=== PATIENT | male | born 1945 | race Caucasian/White ===

== ENCOUNTER 2017-11-30 21:16 | Emergency (ER) | payer MEDICARE ==
[2017-11-30 21:32] VITALS: BP 155/84
--- NOTE | 2017-11-30 22:31 | ER Document Report ---
ED General - General Chief Complaint: Eye Problem Stated Complaint: EYE ISSUES Time Seen by Provider: 11/30/17 22:05 Notes: Patient is a 72-year-old male who presents with complaint of blurred vision in the right eye. 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 Patient's right eye has a history of cataracts has had cataract surgeries in the past. Is followed at [facility] for all his issues. He also has a history of a "abnormal appearing retinal nerve". He was referred to a rare/endangered species specialist but his pressures have always been normal. The only eyedrops he uses are lubricating eyedrops. He says his distance vision is usually pretty good. He says he always has a little bit of difficulty with up close vision and does use glasses for that. He says 2 days ago he noticed that the newspaper was little bit more blurry than usual. Said last 24 hours as become very blurry with his close of vision. He says his distance vision may be a little bit more blurry than usual, but he does not notice a huge difference as with his close vision. He denies any pain in his eye. No recent trauma to his face. No focal weakness or numbness. No slurred speech or facial droop. No history of carotid stenosis that is aware of. He does have a history of what sounds to be aortic stenosis but has never required surgery for this and is not been having any symptoms with exertion. No other complaints at this time. TRAVEL OUTSIDE OF THE [place] IN LAST 30 DAYS: No - Related Data Allergies/Adverse Reactions: Cephalosporins Allergy (Verified 11/30/17 21:23) Facial edema and rash lisinopril Allergy (Verified 11/30/17 21:19) metoprolol [From Lopressor] Allergy (Verified 11/30/17 21:19) Penicillins Allergy (Verified 11/30/17 21:19) Past Medical History - Social History Smoking Status: Never Smoker Frequency of alcohol use: None Drug Abuse: None Family History: Reviewed & Not Pertinent - Past Medical History Cardiac Medical History: Reports: Hx Hypercholesterolemia, Hx Hypertension Review of Systems - Review of Systems Notes: My Normal Review Basic REVIEW OF SYSTEMS: CONSTITUTIONAL : Denies fever, chills, or sweats. Denies recent illness. EENT: New onset blurred vision right eye. CARDIOVASCULAR: Denies chest pain. RESPIRATORY: Denies cough, cold, or chest congestion. Denies shortness of breath, difficulty breathing, or wheezing. FEMALE GENITOURINARY: Denies vaginal bleeding, abnormal or irregular periods. LMP: MUSCULOSKELETAL: Denies neck or back pain or joint pain or swelling. SKIN: Denies rash or skin lesions. NEUROLOGICAL: Denies altered mental status or loss of consciousness. Denies headache. Denies weakness or paralysis or loss of use of either side. Denies problems with gait or speech. Denies sensory or motor loss. ALL OTHER SYSTEMS REVIEWED AND NEGATIVE. Physical Exam - Vital signs Vitals: Temp Pulse Resp BP Pulse Ox 98.1 F 88 18 155/84 H 97 11/30/17 21:30 11/30/17 21:30 11/30/17 21:30 11/30/17 21:30 11/30/17 21:30 - Notes Notes: General Appearance: Well nourished, alert, cooperative, no acute distress, no obvious discomfort. Well-appearing. Vitals: reviewed, See vital signs table. Head: no swelling or tenderness to the head Eyes: Patient's right eye has good extraocular motion without difficulty. Pupil excellent appropriate. No clouding of the pupil. Slit lamp examination does not reveal any abnormality. Funduscopic examination reveals a normal- appearing optic disc without evidence of edema. Bedside ultrasound of the eye does not show evidence of retinal detachment. Intraocular pressure of the right eye is 12 using the Villa-Pen. Mouth: No decreasd moisture Neck: Supple, no neck tenderness, no added bruits. Patient's does have murmur that radiates from the heart into the carotids consistent with his history of aortic stenosis. Lungs: No wheezing, No rales, No rhonci, No accessory muscle use, good air exchange bilaterally. Heart: Normal rate, Regular rythm, systolic murmur radiating towards carotids Extremities: strength 5/5 in all extremities, good pulses in all extremities, no swelling or tenderness in the extremities, no edema. Skin: warm, dry, appropriate color, no rash Neuro: speech clear, oriented x 3, normal affect, responds appropriately to questions. Cranial nerves II through XII are intact the exception of some difficulty with extraocular motion of the left eye which is chronic. Symmetric facial movement. Patient is good strength in all 4 extremities. Distal sensation intact. Normal gait. Course - Re-evaluation Re-evalutation: 12/01/17 05:59 I spoke with registered pharmacist from [facility], Dr. John. He does not have any further suggestions at this time. He says he will have the patient come to the office tomorrow. He says he will have the office contact him tomorrow morning to give an appointment to come and get reevaluated. I did explain to the patient he is agreeable to it. On exam I do not see any finding that would explain exactly was going on. I am concerned he has a history of an normal- appearing retinal nerve which may be why he is having symptoms currently. I do not know the exact etiology behind what the abnormal retinal nerve is. Do not suspect stroke. I suspect that stroke he would have much greater loss of vision that would have affected most all visual mad[place] instead of just his near vision. I do agree with close follow-up with registered pharmacist being that this is the patient's one good eye and therefore did take the precautions needed to help prevent him from worsening his vision. Encouraged to return to ER if he has pain or any worsening symptoms. Patient agrees with plan and will be discharged home. Dictation of this chart was performed using voice recognition software; therefore, there may be some unintended grammatical errors. - Vital Signs Vital signs: Temp Pulse Resp BP Pulse Ox 98.1 F 88 18 155/84 H 97 11/30/17 21:30 11/30/17 21:30 11/30/17 21:30 11/30/17 21:30 11/30/17 21:30 Discharge - Discharge Clinical Impression: Blurred vision, right eye Condition: Good Disposition: HOME, SELF-CARE Additional Instructions: The eye clinic at [facility] should be calling you in the am to give you a time to go to the office. Fell free to call them as well if you do not hear from them by 10am. Please return to the ER if you start to have pain in your eye or any stroke like symptoms such as weakness in your extremities, facial droop, of slurred speech.
[2017-11-30] MEDS ORDERED: TETRACAINE HCL 0.5% OPH SOLN 2 ML OD ONE (22:34)
[2017-11-30] MEDS ORDERED: TETRACAINE HCL 0.5% OPH SOLN 2 ML ONE (22:36)
== END 2017-12-01 00:11 | disposition home or self-care (01) ==
LOC: ER 21:16
DX: H53.8 Other visual disturbances (principal); Z88.1 Allergy status to other antibiotic agents; Z88.8 Allergy status to other drugs, medicaments and biological substances; Z88.0 Allergy status to penicillin
CPT/HCPCS: 99283

== ENCOUNTER 2018-01-07 13:32 | Emergency (ER) | payer MEDICARE ==
[2018-01-07] MEDS ORDERED: MINERAL OIL 30 ML UDCUP PR ONE (13:53)
--- NOTE | 2018-01-07 13:54 | ER Document Report ---
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 Patient denies any fevers chills denies any vomiting. Patient notes that this is happened 4-5 times before and he requires an enema. Patient defers on any imaging states he is not having an obstruction TRAVEL OUTSIDE OF THE [place] IN LAST 30 DAYS: No - HPI Onset: Yesterday Onset/Duration: Sudden Quality of pain: Cramping Severity: Mild Pain Level: 1 Associated symptoms: Other Exacerbated by: Denies Relieved by: Denies Similar symptoms previously: Yes Recently seen / treated by doctor: Yes - Related Data Allergies/Adverse Reactions: Cephalosporins Allergy (Verified 01/07/18 13:35) Facial edema and rash lisinopril Allergy (Verified 01/07/18 13:35) metoprolol [From Lopressor] Allergy (Verified 01/07/18 13:35) Penicillins Allergy (Verified 01/07/18 13:35) Past Medical History - Social History Smoking Status: Never Smoker Cigarette use (# per day): No Chew tobacco use (# tins/day): No Smoking Education Provided: No Family History: Reviewed & Not Pertinent - Past Medical History Cardiac Medical History: Reports: Hx Hypercholesterolemia, Hx Hypertension Renal/ Medical History: Denies: Hx Peritoneal Dialysis Review of Systems - Review of Systems Notes: REVIEW OF SYSTEMS: CONSTITUTIONAL : Denies fever, chills, or sweats. Denies recent illness. EENT: Denies eye, ear, throat, or mouth pain or symptoms. Denies nasal or sinus congestion or discharge. Denies throat, tongue, or mouth swelling or difficulty swallowing. CARDIOVASCULAR: Denies chest pain. Denies palpitations or racing or irregular heart beat. Denies ankle edema. RESPIRATORY: Denies cough, cold, or chest congestion. Denies shortness of breath, difficulty breathing, or wheezing. GASTROINTESTINAL: Denies any abdominal pain admits to rectal pressure GENITOURINARY: Denies difficulty urinating, painful urination, burning, frequency, blood in urine, or discharge. MUSCULOSKELETAL: Denies back or neck pain or stiffness. Denies joint pain or swelling. SKIN: Denies rash, lesions or sores. HEMATOLOGIC : Denies easy bruising or bleeding. LYMPHATIC: Denies swollen, enlarged glands. NEUROLOGICAL: Denies confusion or altered mental status. Denies passing out or loss of consciousness. Denies dizziness or lightheadedness. Denies headache. Denies weakness or paralysis or loss of use of either side. Denies problems with gait or speech. Denies sensory loss, numbness, or tingling. Denies seizures. PSYCHIATRIC: Denies anxiety or stress. Denies depression, suicidal ideation, or homicidal ideation. ALL OTHER SYSTEMS REVIEWED AND NEGATIVE. Dictation was performed using [employer] recognition software PHYSICAL EXAMINATION: GENERAL: Well-appearing, well-nourished and in no acute distress. HEAD: Atraumatic, normocephalic. EYES: Strabismus ENT: Nares patent, oropharynx clear without exudates. Moist mucous membranes. NECK: Normal range of motion, supple without lymphadenopathy LUNGS: Breath sounds clear to auscultation bilaterally and equal. No wheezes rales or rhonchi. HEART: Regular rate and rhythm without murmurs ABDOMEN: Soft, nontender, nondistended abdomen. No guarding, no rebound. No masses appreciated. Musculoskeletal: Normal range of motion, no pitting or edema. No cyanosis. NEUROLOGICAL: Cranial nerves grossly intact. Normal speech, normal gait. Normal sensory, motor exams PSYCH: Normal mood, normal affect. SKIN: Warm, Dry, normal turgor, no rashes or lesions noted. Physical Exam - Vital signs Vitals: Temp Pulse Resp BP Pulse Ox 98.1 F 102 H 12 149/82 H 96 01/07/18 13:37 01/07/18 13:37 01/07/18 13:37 01/07/18 13:37 01/07/18 13:37 Course - Re-evaluation Re-evalutation: 01/07/18 14:00 Patient was offered rectal examination stimulation he defers he wishes to have the enema performed I will ordered the enema at his request, I do believe he requires imaging to rule out obstruction he does not want 01/07/18 16:07 Enema was performed successfully patient stable and ready for discharge After performing a Medical Screening Examination, I estimate there is LOW risk for ACUTE APPENDICITIS, BOWEL OBSTRUCTION, ACUTE CHOLECYSTITIS, PERFORATED DIVERTICULITIS, INCARCERATED HERNIA, PANCREATITIS, TESTICULAR TORSION or PERFORATED ULCER, thus I consider the discharge disposition reasonable. Also, there is no evidence or peritonitis, sepsis, or toxicity. I have reevaluated this patient multiple times and no significant life threatening changes are noted. The patient and I have discussed the diagnosis and risks, and we agree with discharging home with close follow-up with the understanding that symptoms and presentations can change. We also discussed returning to the Emergency Department immediately if new or worsening symptoms occur. We have discussed the symptoms which are most concerning (e.g., bloody stool, fever, changing or worsening pain, intractable vomiting - standard verbal up date) that necessitate immediate return. - Vital Signs Vital signs: Temp Pulse Resp BP Pulse Ox 98.1 F 102 H 12 149/82 H 96 01/07/18 13:37 01/07/18 13:37 01/07/18 13:37 01/07/18 13:37 01/07/18 13:37 Discharge - Discharge Clinical Impression: Constipation Qualifiers: Constipation type: unspecified constipation type Qualified Code(s): K59.00 - Constipation, unspecified Condition: Stable Disposition: HOME, SELF-CARE Instructions: Constipation ([facility]) Additional Instructions: Follow up with your physician tomorrow for further care or return to the ED IMMEDIATELY if symptoms worsen or new concerns occur. If you cannot afford to follow up with your primary care physician a list of low cost clinics have been provided at the end of your discharge papers as well.
[2018-01-07 16:16] VITALS: BP 116/61
== END 2018-01-07 16:28 | disposition home or self-care (01) ==
LOC: ER 13:32
DX: K59.00 Constipation, unspecified (principal); E78.00 Pure hypercholesterolemia, unspecified; I10 Essential (primary) hypertension; Z88.0 Allergy status to penicillin
CPT/HCPCS: 99283; J3490

== ENCOUNTER 2018-04-17 08:39 | Emergency (ER) | payer MEDICARE ==
--- NOTE | 2018-04-17 09:12 | ER Document Report ---
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 It happens about 4 times a year. He does take MiraLAX 1 capful every day but when his stool gets too loose he kind of cuts down on the amount. He feels rectal pressure and inability to pass a large rectal stool, small stool yesterday with a lot of straining. When he urinated this morning he felt like he had difficulty completely emptying his bladder caused anal pressure. He has since emptying his bladder since he got to the emergency room. He states the enema always helps. He initially did not want a KUB x-ray. But now that he was able to empty his bladder he wanted the x-ray. No fever or chills. No abdominal pain. No chest pain or shortness of breath. TRAVEL OUTSIDE OF THE [place] IN LAST 30 DAYS: No - Related Data Allergies/Adverse Reactions: Cephalosporins Allergy (Verified 04/17/18 08:42) Facial edema and rash lisinopril Allergy (Verified 04/17/18 08:42) metoprolol [From Lopressor] Allergy (Verified 04/17/18 08:42) Penicillins Allergy (Verified 04/17/18 08:42) Past Medical History - General Information source: Patient - Social History Smoking Status: Never Smoker Frequency of alcohol use: None Drug Abuse: None Lives with: Family Family History: Reviewed & Not Pertinent - Past Medical History Cardiac Medical History: Reports: Hx Hypercholesterolemia, Hx Hypertension Renal/ Medical History: Denies: Hx Peritoneal Dialysis Past Surgical History: Reports: Hx Genitourinary Surgery - hypospadius repair, Hx Rectal Surgery - anal repair Review of Systems - Review of Systems Constitutional: No symptoms reported EENT: No symptoms reported Cardiovascular: No symptoms reported Respiratory: No symptoms reported Gastrointestinal: See HPI Genitourinary: No symptoms reported Male Genitourinary: No symptoms reported Musculoskeletal: No symptoms reported Skin: No symptoms reported Hematologic/Lymphatic: No symptoms reported Neurological/Psychological: No symptoms reported Physical Exam - Vital signs Vitals: Temp Pulse Resp BP Pulse Ox 98.4 F 89 15 148/78 H 95 04/17/18 08:45 04/17/18 08:45 04/17/18 08:45 04/17/18 08:45 04/17/18 08:45 Interpretation: Normal - General General appearance: Appears well, Alert - HEENT Head: Normocephalic, Atraumatic Eyes: Normal Pupils: PERRL - Respiratory Respiratory status: No respiratory distress Chest status: Nontender Breath sounds: Normal Chest palpation: Normal - Cardiovascular Rhythm: Regular Heart sounds: Normal auscultation Murmur: No - Abdominal Inspection: Normal Distension: Tympanitic Bowel sounds: Normal Tenderness: Nontender Organomegaly: No organomegaly Notes: no enlarged bladder - Rectal Tenderness: Yes Hemorrhoids: External - Some bleeding inflamed hemorrhoids - Back Back: Normal, Nontender - Extremities General upper extremity: Normal inspection, Nontender, Normal color, Normal ROM , Normal temperature General lower extremity: Normal inspection, Nontender, Normal color, Normal ROM , Normal temperature, Normal weight bearing. No: Shmuel's sign - Neurological Neuro grossly intact: Yes Cognition: Normal Orientation: AAOx4 Eagle Coma Scale Eye Opening: Spontaneous Eagle Coma Scale Verbal: Oriented Eagle Coma Scale Motor: Obeys Commands Clayton Coma Scale Total: 15 Speech: Normal Motor strength normal: LUE, RUE, LLE, RLE Sensory: Normal - Psychological Associated symptoms: Normal affect, Normal mood - Skin Skin Temperature: Warm Skin Moisture: Dry Skin Color: Normal Course - Re-evaluation Re-evalutation: 04/17/18 10:10 KUB shows large rectal stool load. Patient does not want a digital rectal exam. We will use the longer enema tubing to get past the obstruction which was used the last time he was here in the emergency department. 04/17/18 11:04 Relieved his stool impaction from the rectum after the enema and a soft stool above with red blood from the anal hemorrhoids. Feels normal now. 04/17/18 11:05 - Vital Signs Vital signs: Temp Pulse Resp BP Pulse Ox 98.4 F 89 15 148/78 H 95 04/17/18 08:45 04/17/18 08:45 04/17/18 08:45 04/17/18 08:45 04/17/18 08:45 Discharge - Discharge Clinical Impression: Rectal stool impaction resolution Condition: Good Disposition: HOME, SELF-CARE Instructions: Constipation ([facility]) Additional Instructions: Continue the MiraLAX daily Return to the emergency room any concerns see dr villa for follow up to er if you concerns, fever, abdominal pain
[2018-04-17] MEDS ORDERED: NA PHOS,M-B/NA PHOS,DI-BA (ADULT) 133 ML ENEMA PR ONE (09:35)
[2018-04-17] MEDS ORDERED: MINERAL OIL 30 ML UDCUP PR ONE (10:09)
--- NOTE | 2018-04-17 10:11 | RADIOLOGY REPORT (SQ) ---
EXAM DESCRIPTION: KUB/ABDOMEN (SINGLE VIEW) COMPLETED DATE/TIME: 04/17/2018 10:01 am REASON FOR STUDY: abdominal pain COMPARISON: 09/08/2017 NUMBER OF VIEWS: One view. TECHNIQUE: Supine radiographic image of the abdomen acquired. LIMITATIONS: None. FINDINGS: BOWEL GAS PATTERN: Normal bowel gas pattern. No dilated loops. CONSTIPATION: moderate CALCIFICATIONS: Stable calcifications right upper quadrant presumably representing gallstones. SOFT TISSUES: No gross mass or suggestion of organomegaly. HARDWARE: None in the abdomen. BONES: No acute fracture. No worrisome bone lesions. OTHER: No other significant finding. IMPRESSION: NO RADIOGRAPHIC EVIDENCE FOR ACUTE ABDOMINAL DISEASE. Moderate constipation. TECHNICAL DOCUMENTATION: JOB ID: [id number] [employer]- All Rights Reserved Reading location - IP/workstation name: [email or web address]
[2018-04-17 11:14] VITALS: BP 123/74
== END 2018-04-17 11:14 | disposition home or self-care (01) ==
LOC: ER 08:39
DX: K56.41 Fecal impaction (principal); K64.4 Residual hemorrhoidal skin tags; I10 Essential (primary) hypertension; Z79.899 Other long term (current) drug therapy; Z88.1 Allergy status to other antibiotic agents; Z88.8 Allergy status to other drugs, medicaments and biological substances; Z88.0 Allergy status to penicillin
CPT/HCPCS: 99283; 74018; J3490

== ENCOUNTER → 2018-07-16 | Emergency (ER) | payer MEDICARE ==
[~2018-07-16] MED LIST: ASPIRIN 81 MG TABLET, CHEWABLE PO ONE; POTASSIUM CHLORIDE 10 MEQ CAPSULE.ER PO ONE
[2018-07-16 20:13] LABS: ABSOLUTE BASOPHILS # (AUTO) 0.1 10^3/uL (0.0-0.2); ABSOLUTE EOSINOPHILS # (AUTO) 0.1 10^3/uL (0.0-0.6); ABSOLUTE LYMPHOCYTES (AUTO) 1.6 10^3/uL (0.5-4.7); ABSOLUTE MONOCYTES (AUTO) 0.5 10^3/uL (0.1-1.4); ABSOLUTE NEUT (AUTO) 2.6 10^3/uL (1.7-8.2); BASOPHILS % (AUTO) 1.2 % (0-2); EOSINOPHILS % (AUTO) 1.8 % (0-6); HEMATOCRIT 35.9 % (37.9-51.0); HEMOGLOBIN 12.5 g/dL (13.5-17.0); LYMPHOCYTES % (AUTO) 33.4 % (13-45); MEAN CORPUSCULAR HEMOGLOBIN 29.9 pg (27.0-33.4); MEAN CORPUSCULAR VOLUME 86 fl (80-97); MONOCYTES % (AUTO) 9.4 % (3-13); PLATELET COUNT 249 10^3/uL (150-450); RED BLOOD COUNT 4.19 10^6/uL (4.35-5.55); SEGMENTED NEUTROPHILS % (AUTO) 54.2 % (42-78); TOTAL CELLS COUNTED % (AUTO) 100 %; WHITE BLOOD COUNT 4.9 10^3/uL (4.0-10.5)
--- NOTE | 2018-07-16 20:29 | ER Document Report ---
ED Cardiac - General Chief Complaint: Weakness Stated Complaint: WEAKNESS Time Seen by Provider: 07/16/18 19:44 Mode of Arrival: Medic Information source: Patient Notes: Patient is a 72-year-old male who presents today via EMS for chief complaint of weakness. Patient is a 5 weeks post aortic valve replacement done at [facility]. Patient's dag sprayer at [facility] is Dr. Jero Hummel. Patient reports that he has had mild fatigue since the surgery but had gotten up to the point where he was walking at least 30 minutes a day. This morning he woke up and felt very weak, his took his blood pressure and found it to be 105/60. His heart rate was in the 50s. Patient's has a log at the bedside for the past several weeks and patient's blood pressure has typically been 120s-130s systolic and heart rate has been running in the 70s-80s over the last several weeks. Patient does not have any other symptoms, denies shortness of breath, chest pain/pressure or nausea. Patient reports that he is currently undergoing treatment for urinary tract infection, patient taking Macrobid for the last 8 days. He reports his primary care provider placed him on the Macrobid for 30 days. TRAVEL OUTSIDE OF THE [place] IN LAST 30 DAYS: No - Related Data Allergies/Adverse Reactions: Cephalosporins Allergy (Verified 04/17/18 08:42) Facial edema and rash lisinopril Allergy (Verified 04/17/18 08:42) metoprolol [From Lopressor] Allergy (Verified 04/17/18 08:42) Penicillins Allergy (Verified 04/17/18 08:42) Past Medical History - General Information source: Patient - Social History Smoking Status: Never Smoker Frequency of alcohol use: None Drug Abuse: None Family History: Reviewed & Not Pertinent - Past Medical History Cardiac Medical History: Reports: Hx Hypercholesterolemia, Hx Hypertension Renal/ Medical History: Denies: Hx Peritoneal Dialysis Past Surgical History: Reports: Hx Cardiac Surgery - Aortic valve replacement at [facility]., Hx Genitourinary Surgery - hypospadius repair, Hx Rectal Surgery - anal repair - Immunizations Immunizations up to date: Yes Review of Systems - Review of Systems Constitutional: Weakness Cardiovascular: denies: Chest pain, Palpitations Respiratory: denies: Short of breath Gastrointestinal: denies: Abdominal pain, Diarrhea, Nausea, Vomiting Genitourinary: Frequency -: Yes All other systems reviewed and negative Physical Exam - Vital signs Vitals: Pulse Ox 99 07/16/18 20:05 - Notes Notes: PHYSICAL EXAMINATION: GENERAL: Well-appearing, well-nourished and in no acute distress. HEAD: Atraumatic, normocephalic. EYES: Pupils equal round and reactive to light, extraocular movements intact, sclera anicteric, conjunctiva are normal. ENT: Nares patent, oropharynx clear without exudates. Moist mucous membranes. NECK: Normal range of motion, supple without lymphadenopathy LUNGS: Breath sounds clear to auscultation bilaterally and equal. No wheezes rales or rhonchi. HEART: Regular rate and rhythm without murmurs ABDOMEN: Soft, nontender, nondistended abdomen. No guarding, no rebound. No masses appreciated. Musculoskeletal: Normal range of motion, no pitting or edema. No cyanosis. NEUROLOGICAL: Cranial nerves grossly intact. Normal speech, unsteady gait. Normal sensory, motor exams. PSYCH: Normal mood, normal affect. SKIN: Warm, Dry, normal turgor, no rashes or lesions noted. Healing incision to right chest wall. Course - Re-evaluation Re-evalutation: CBC is unremarkable. Comprehensive metabolic panel reveals a potassium of 3.3, otherwise unremarkable. CK, CK-MB and troponin are all negative. Patient continues to be in a sinus rhythm with a rate ranging between 50 and 58. Patient has had a couple of episodes of a heart rate in the low 80s. Patient has no complaints at this time other than generalized weakness. Patient was able to ambulate to the restroom with a slow but steady gait. 07/16/18 21:10 Call placed to cardiology team at [facility]. Awaiting callback. 07/16/18 22:20 Continuing to await callback from [facility]. 07/17/18 00:12 Patient is resting comfortably with spouse at bedside. Patient updated on current status. 07/17/18 01:20 Dr. Byron Rust from [facility] excepting patient for transfer. Patient and family member at bedside updated on plan of care and are agreeable to same. Patient remains hemodynamically stable at this time. Will order a repeat EKG as per requested by Dr. Rust. 07/17/18 04:04 Spoke with the transfer center at [facility] who reports that will not be a bed available until mid morning for this patient. Patient and family member are made aware of the update. Patient's heart rate currently 62, sinus rhythm, blood pressure 128/82, patient denies any complaints at this time. 07/17/18 06:33 Patient and family have been continually updated regarding the status of the transfer. Patient has been having much anxiety regarding what time he will be leaving, how his will get up to the hospital etc. Patient continues to not have any physical symptoms at this time. 07/17/18 07:14 Bedside handoff given to Dr. Dyer. Patient updated on the plan of care and is without any questions at this time. - Vital Signs Vital signs: Temp Pulse Resp BP Pulse Ox 98.9 F 17 128/82 H 96 07/17/18 04:23 07/17/18 04:01 07/17/18 04:01 07/17/18 04:01 - Laboratory Result Diagrams: 07/16/18 20:00 07/16/18 20:00 Laboratory results interpreted by me: 07/16/18 07/16/18 20:00 20:00 RBC 4.19 L Hgb 12.5 L Hct 35.9 L Sodium 136.3 L Potassium 3.3 L Discharge - Discharge Disposition: [facility]
[2018-07-16 20:40] LABS: ALANINE AMINOTRANSFERASE 23 U/L (21-72); ALBUMIN 4.2 g/dL (3.5-5.0); ALKALINE PHOSPHATASE 75 U/L (38-126); ANION GAP 11 (5-19); ASPARTATE AMINO TRANSFERASE 29 U/L (17-59); BILIRUBIN,DIRECT 0.3 mg/dL (0.0-0.4); BILIRUBIN,TOTAL 0.7 mg/dL (0.2-1.3); BLOOD UREA NITROGEN 10 mg/dL (7-20); CALCIUM 8.8 mg/dL (8.4-10.2); CARBON DIOXIDE 26 mmol/L (22-30); CHLORIDE 99 mmol/L (98-107); CREATINE KINASE 83 U/L (55-170); GLUCOSE 98 mg/dL (75-110); POTASSIUM 3.3 mmol/L (3.6-5.0); SODIUM 136.3 mmol/L (137-145); TOTAL PROTEIN 7.3 g/dL (6.3-8.2)
[2018-07-16 20:51] LABS: CREATINE KINASE MB 1.51 ng/mL (<4.55)
[2018-07-16 20:57] LABS: TROPONIN I < 0.012 ng/mL
--- NOTE | 2018-07-16 21:06 | RADIOLOGY REPORT (SQ) ---
EXAM DESCRIPTION: CHEST SINGLE VIEW COMPLETED DATE/TIME: 07/16/2018 8:38 pm REASON FOR STUDY: weakness COMPARISON: None. EXAM PARAMETERS: NUMBER OF VIEWS: One view. TECHNIQUE: Single frontal radiographic view of the chest acquired. RADIATION DOSE: NA LIMITATIONS: Mild RPO positioning. FINDINGS: LUNGS AND PLEURA: No consolidation, masses or pneumothorax. No pleural effusion. MEDIASTINUM AND HILAR STRUCTURES: Age-appropriate for technique. HEART AND VASCULAR STRUCTURES: Heart normal in size. Normal vasculature. BONES: No acute findings. HARDWARE: None in the chest. OTHER: No other significant finding. IMPRESSION: No consolidation or pleural effusion. TECHNICAL DOCUMENTATION: JOB ID: [id number] 2010 [employer]- All Rights Reserved Reading location - IP/workstation name: [email or web address]
[2018-07-16 21:42] LABS: APPEARANCE,URINE CLEAR; BILIRUBIN,URINE NEGATIVE (NEGATIVE); COLOR,URINE COLORLESS; GLUCOSE, URINE NEGATIVE (NEGATIVE); KETONES,URINE NEGATIVE (NEGATIVE); LEUKOCYTE ESTERASE,URINE NEGATIVE (NEGATIVE); NITRITE,URINE NEGATIVE (NEGATIVE); PROTEIN,URINE NEGATIVE (NEGATIVE); URINE SPECIFIC GRAVITY 1.002; UROBILINOGEN,URINE NEGATIVE mg/dL (<2.0)
--- NOTE | 2018-07-17 05:33 | EKG REPORT ---
SEVERITY:- NORMAL ECG - SINUS RHYTHM : Confirmed by: Frankie Pérez MD 17-Jul-2018 05:33:09
--- NOTE | 2018-07-17 05:35 | EKG REPORT ---
SEVERITY:- ABNORMAL ECG - SINUS BRADYCARDIA VENTRICULAR BIGEMINY NONSPECIFIC INTRAVENTRICULAR CONDUCTION DELAY : Confirmed by: Frankie Pérez MD 17-Jul-2018 05:34:22
[2018-07-17 11:12] VITALS: BP 132/78
--- NOTE | 2018-07-17 16:26 | ER Document Report ---
Doctor's Note Notes: 07/17/18 16:26 Transport is available. Patient's vital signs normal. Remained stable for transport at this time.
== END | disposition short-term general hospital (02) ==
LOC: ER 19:38
DX: R53.1 Weakness (principal); Z95.2 Presence of prosthetic heart valve; R53.83 Other fatigue; Z79.899 Other long term (current) drug therapy; I10 Essential (primary) hypertension; R35.0 Frequency of micturition
CPT/HCPCS: 93005; 99285; 36415; 82553; 82550; 85025; 80053; 81001; 84484; 71045; 93010; A9270

== ENCOUNTER 2018-10-06 09:01 | Emergency (ER) | payer MEDICARE ==
--- NOTE | 2018-10-06 09:35 | ER Document Report ---
ED General - General Chief Complaint: Abdominal Pain Stated Complaint: ABDOMINAL PAIN Time Seen by Provider: 10/06/18 09:16 TRAVEL OUTSIDE OF THE [place] IN LAST 30 DAYS: No - HPI Notes: Patient is a 73-year-old male that presents to the emergency department for chief complaint of constipation. 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 He usually takes MiraLAX once a day and occasionally requires an enema. He states he does not do home enemas because he is concerned about his anatomy. Patient took MiraLAX twice yesterday and had no bowel movement. Today he states he only had a small BM but was straining. He reports a lower abdominal pain that feels like a fullness and achy. The pain has no aggravating or relieving factors. He denies any associated nausea, vomiting, fevers or chills. He states this feels identical to his constipation in the past and is just requesting an enema. Past Medical History: Hypertension, BPH, hyperlipidemia Past Surgical History: Aortic valve repair Social History: Denies drugs alcohol and tobacco Family History: Reviewed and noncontributory for presenting illness Allergies: Reviewed, see documented allergy list. REVIEW OF SYSTEMS: CONSTITUTIONAL : No fever No chills No diaphoresis No recent illness EENT: No vision changes No congestion No sore throat CARDIOVASCULAR: No chest pain No palpitations RESPIRATORY: No shortness of breath No cough No difficulty breathing GASTROINTESTINAL: abdominal pain No nausea No vomiting No diarrhea GENITOURINARY: No dysuria No hematuria No difficulty urinating MUSCULOSKELETAL: No back pain No leg pain No arm pain SKIN: No rashes No lesions LYMPHATIC: No swollen, enlarged glands. NEUROLOGICAL: No lightheadedness No headache No weakness No paresthesias PSYCHIATRIC: No anxiety No depression PHYSICAL EXAMINATION: Vital signs reviewed, nursing noted reviewed. GENERAL: Well-appearing, well-nourished and in no acute distress. HEAD: Atraumatic, normocephalic. EYES: Eyes appear normal, extraocular movements intact, sclera anicteric, conjunctiva are normal. ENT: nares patent, oropharynx clear without exudates. Moist mucous membranes. NECK: Normal range of motion, supple without lymphadenopathy LUNGS: Breath sounds clear to auscultation bilaterally and equal. No wheezes rales or rhonchi. HEART: Regular rate and rhythm without murmurs ABDOMEN: Soft, nontender, normoactive bowel sounds. No rebound, guarding, or rigidity. No masses appreciated. EXTREMITIES: Nontender, good range of motion, no pitting or edema. NEUROLOGICAL: No focal neurological deficits. Moves all extremities spontaneously Motor and sensory grossly intact on exam. PSYCH: Normal mood, normal affect. SKIN: Warm, Dry, normal turgor, no rashes or lesions noted on exposed skin - Related Data Allergies/Adverse Reactions: Cephalosporins Allergy (Verified 04/17/18 08:42) Facial edema and rash lisinopril Allergy (Verified 04/17/18 08:42) metoprolol [From Lopressor] Allergy (Verified 04/17/18 08:42) Penicillins Allergy (Verified 04/17/18 08:42) Past Medical History - Social History Smoking Status: Never Smoker Family History: Reviewed & Not Pertinent - Past Medical History Cardiac Medical History: Reports: Hx Hypercholesterolemia, Hx Hypertension Renal/ Medical History: Denies: Hx Peritoneal Dialysis Past Surgical History: Reports: Hx Cardiac Surgery - Aortic valve replacement at [place]., Hx Genitourinary Surgery - hypospadius repair, Hx Rectal Surgery - anal repair - Immunizations Immunizations up to date: Yes Review of Systems - Review of Systems Notes: Dictated Physical Exam - Vital signs Vitals: Temp Pulse Resp BP Pulse Ox 98.2 F 88 16 145/92 H 97 10/06/18 09:05 10/06/18 09:05 10/06/18 09:05 10/06/18 09:05 10/06/18 09:05 - Notes Notes: Dictated Course - Re-evaluation Re-evalutation: 10/06/18 09:33 Vitals reviewed. Nursing notes reviewed. Patient's abdomen is soft and nontender. He is requesting an enema which will be provided for constipation. He has had identical presentations in the past for constipation. 10/06/18 10:41 After enema patient had a large bowel movement. Patient's nurse noted a small amount of bright red blood at the beginning of patient's bowel movement. The stool was normal colored and the bleeding did not continue. Patient is not actively having a GI hemorrhage. He has been straining recently and I suspect a hemorrhoid as a source of his bleeding. He states he has had bright red blood with previous constipation issues in the past. He is not on any anticoagulation. Patient is stable for discharge and will follow closely with his primary care doctor. He will return for any new or worsening symptoms including increased bleeding or black tarry stools. Patient and family in agreement with this plan and stable at discharge. - Vital Signs Vital signs: Temp Pulse Resp BP Pulse Ox 98.2 F 88 16 145/92 H 97 10/06/18 09:05 10/06/18 09:05 10/06/18 09:05 10/06/18 09:05 10/06/18 09:05 Discharge - Discharge Clinical Impression: Constipation Qualifiers: Constipation type: other constipation type Qualified Code(s): K59.09 - Other constipation Abdominal pain Qualifiers: Abdominal location: lower abdomen, unspecified Qualified Code(s): R10.30 - Lower abdominal pain, unspecified Condition: Stable Disposition: HOME, SELF-CARE Instructions: Constipation ([facility]) Additional Instructions: Please return to the emergency department if you have any worsening, or concern of your symptoms. Please return to the emergency department if you develop chest pain, difficulty breathing, severe abdominal pain, or ongoing vomiting. Please follow-up with your primary care physician in 2-3 days and any other recommended physicians. If prescribed, take all medications as directed. If you have any questions or concerns do not hesitate to return the emergency department for evaluation. Use your home MiraLAX 2-3 times daily as needed to obtain soft bowel movements. If your bowel movement becomes liquidy or too soft decrease the MiraLAX to 1 time daily Referrals: JAIME YAN MD [Primary Care Provider] - Follow up in 3-5 days
[2018-10-06 10:59] VITALS: BP 143/71
== END 2018-10-06 11:01 | disposition home or self-care (01) ==
LOC: ER 09:01
DX: K59.09 Other constipation (principal); Z79.899 Other long term (current) drug therapy; R10.30 Lower abdominal pain, unspecified; R58 Hemorrhage, not elsewhere classified; I10 Essential (primary) hypertension; Z95.2 Presence of prosthetic heart valve; Z88.1 Allergy status to other antibiotic agents; Z88.8 Allergy status to other drugs, medicaments and biological substances; Z88.0 Allergy status to penicillin
CPT/HCPCS: 99283

== ENCOUNTER 2018-10-24 21:42 | Emergency (ER) | payer MEDICARE ==
[2018-10-24] MEDS ORDERED: NORMAL SALINE 1000 ML 1,000 ML IV ONE (22:02)
[2018-10-24] MEDS ORDERED: ONDANSETRON HCL INJ/PF 4 MG/2 ML SDV IV ONE (22:02)
[2018-10-24 22:41] LABS: HEMATOCRIT 44.8 % (37.9-51.0); HEMOGLOBIN 15.7 g/dL (13.5-17.0); MEAN CORPUSCULAR HEMOGLOBIN 29.6 pg (27.0-33.4); MEAN CORPUSCULAR HGB CONC 35.1 g/dL (32.0-36.0); MEAN CORPUSCULAR VOLUME 84 fl (80-97); PLATELET COUNT 180 10^3/uL (150-450); RED BLOOD COUNT 5.32 10^6/uL (4.35-5.55); RED CELL DISTRIBUTION WIDTH 14.3 % (11.5-14.0); WHITE BLOOD COUNT 11.3 10^3/uL (4.0-10.5)
[2018-10-24 22:56] LABS: APPEARANCE,URINE SLIGHTLY-CLOUDY; BILIRUBIN,URINE NEGATIVE (NEGATIVE); COLOR,URINE YELLOW; GLUCOSE, URINE NEGATIVE (NEGATIVE); KETONES,URINE 20 mg/dL (NEGATIVE); LEUKOCYTE ESTERASE,URINE NEGATIVE (NEGATIVE); NITRITE,URINE NEGATIVE (NEGATIVE); PROTEIN,URINE 30 mg/dL (NEGATIVE); URINE SPECIFIC GRAVITY 1.024; UROBILINOGEN,URINE NEGATIVE mg/dL (<2.0)
[2018-10-24 22:56] LABS: ALANINE AMINOTRANSFERASE 21 U/L (21-72); ALBUMIN 4.5 g/dL (3.5-5.0); ALKALINE PHOSPHATASE 77 U/L (38-126); ANION GAP 14 (5-19); ASPARTATE AMINO TRANSFERASE 32 U/L (17-59); BILIRUBIN,DIRECT 0.4 mg/dL (0.0-0.4); BILIRUBIN,TOTAL 1.8 mg/dL (0.2-1.3); BLOOD UREA NITROGEN 18 mg/dL (7-20); CALCIUM 9.2 mg/dL (8.4-10.2); CARBON DIOXIDE 22 mmol/L (22-30); CHLORIDE 105 mmol/L (98-107); GLUCOSE 126 mg/dL (75-110); LIPASE 338.8 U/L (23-300); POTASSIUM 4.1 mmol/L (3.6-5.0); SODIUM 140.7 mmol/L (137-145); TOTAL PROTEIN 7.8 g/dL (6.3-8.2)
[2018-10-24 23:05] LABS: ABSOLUTE LYMPHOCYTES# (MANUAL) 0.3 10^3/uL (0.5-4.7); ABSOLUTE MONOCYTES # (MANUAL) 0.5 10^3/uL (0.1-1.4); ABSOLUTE NEUTROPHILS# (MANUAL) 10.5 10^3/uL (1.7-8.2); BASOPHILS % (MANUAL) 0 % (0-2); EOSINOPHILS % (MANUAL) 0 % (0-6); LYMPHOCYTES % (MANUAL) 3 % (13-45); MONOCYTES % (MANUAL) 4 % (3-13); SEGMENTED NEUTROPHILS % (MAN) 93 % (42-78); TOTAL CELLS COUNTED 100
[2018-10-24 23:07] LABS: ANISOCYTOSIS SLIGHT; OVALOCYTES SLIGHT; PLATELET COMMENT ADEQUATE; POIKILOCYTOSIS SLIGHT; TOXIC GRANULATION SLIGHT
[2018-10-24 23:24] VITALS: BP 126/79
[2018-10-24] MEDS ORDERED: ONDANSETRON ODT 4 MG TAB (6 TAB/ER DISP) PO PRN (23:26)
--- NOTE | 2018-10-24 23:26 | ER Document Report ---
ED General - General Chief Complaint: Nausea/Vomiting/Diarrhea Stated Complaint: VOMITING,NAUSEA Time Seen by Provider: 10/24/18 22:00 Notes: Patient is a 73-year old male who presents with 6 hours of nausea, vomiting and diarrhea. The patient states that his symptoms started relatively gradually and have tapered off since that time. States that he has been unable to tolerate oral intake since onset of his symptoms. He denies any abdominal pain although states prior to the onset of his symptoms he did have some bloating and fullness of his abdomen which has since resolved. Nothing seems to improve or worsen his symptoms. Denies a recent history of similar symptoms in the past. No known sick contacts. He has not seen his general physician regarding today's concerns. He denies any fever or constitutional symptoms. At the time of my assessment he states that he actually feels quite well. TRAVEL OUTSIDE OF THE [place] IN LAST 30 DAYS: No - Related Data Allergies/Adverse Reactions: Cephalosporins Allergy (Verified 10/24/18 22:48) Facial edema and rash lisinopril Allergy (Verified 10/24/18 22:48) Penicillins Allergy (Verified 10/24/18 22:48) Past Medical History - General Information source: Patient - Social History Smoking Status: Never Smoker Frequency of alcohol use: None Drug Abuse: None Lives with: Spouse/Significant other Family History: Reviewed & Not Pertinent Patient has suicidal ideation: No Patient has homicidal ideation: No - Past Medical History Cardiac Medical History: Reports: Hx Hypercholesterolemia, Hx Hypertension Renal/ Medical History: Denies: Hx Peritoneal Dialysis Past Surgical History: Reports: Hx Cardiac Surgery - Aortic valve replacement at [place]., Hx Genitourinary Surgery - hypospadius repair, Hx Rectal Surgery - anal repair - Immunizations Immunizations up to date: Yes Review of Systems - Review of Systems Notes: Constitutional: Negative for fever. HENT: Negative for sore throat. Eyes: Negative for visual changes. Cardiovascular: Negative for chest pain. Respiratory: Negative for shortness of breath. Gastrointestinal: Negative for abdominal pain, positive for vomiting and diarrhea Genitourinary: Negative for dysuria. Musculoskeletal: Negative for back pain. Skin: Negative for rash. Neurological: Negative for headaches, weakness or numbness. 10 point ROS negative except as marked above and in HPI. Physical Exam - Vital signs Vitals: Temp Pulse Resp BP Pulse Ox 98.5 F 108 H 16 136/87 H 97 10/24/18 21:47 10/24/18 21:47 10/24/18 21:47 10/24/18 21:47 10/24/18 21:47 Interpretation: Tachycardic Notes: PHYSICAL EXAMINATION: GENERAL: Well-appearing, well-nourished and in no acute distress. HEAD: Atraumatic, normocephalic. EYES: Pupils equal round and reactive to light, extraocular movements intact, sclera anicteric, conjunctiva are normal. ENT: nares patent, oropharynx clear without exudates. Mild dry mucous membranes. NECK: Normal range of motion, supple without lymphadenopathy LUNGS: Breath sounds clear to auscultation bilaterally and equal. No wheezes rales or rhonchi. HEART: Regular rate and rhythm without murmurs ABDOMEN: Soft, nontender, normoactive bowel sounds. No guarding, no rebound. No masses appreciated. EXTREMITIES: Normal range of motion, no pitting or edema. No cyanosis. NEUROLOGICAL: No focal neurological deficits. Moves all extremities spontaneously and on command. PSYCH: Normal mood, normal affect. SKIN: Warm, Dry, normal turgor, no rashes or lesions noted. Course - Re-evaluation Re-evalutation: 10/24/18 23:25 Presentation of an overall well-appearing patient in no acute distress with complaints of nausea, vomiting, diarrhea. Patient has no abdominal tenderness on exam and specifically no tenderness in the RLQ, LLQ, RUQ. Overall well hydrated on exam. Able to tolerate oral intake here in the emergency department. Low clinical suspicion for any acute life-threatening etiology based on exam and history including acute cholecystitis, SBO, appendicitis, nephrolithiasis, or pylonephritis. CMP without evidence of acute hepatitis or significant dehydration. CBC otherwise unremarkable. Patient has not had any additional bowel movements while here in the emergency department. Given the absence of any abdominal tenderness of any kind on exam or by history I do not see an indication for CT scan of the abdomen and pelvis. At this time will discharge with return precautions and follow-up recommendations. Verbal discharge instructions given a the bedside and opportunity for questions given. Medication warnings reviewed. Patient is in agreement with this plan and has verbalized understanding of return precautions and the need for primary care follow-up in the next 24-72 hours. - Vital Signs Vital signs: Temp Pulse Resp BP Pulse Ox 97.9 F 98 19 126/79 H 98 10/24/18 23:23 10/24/18 23:23 10/24/18 23:23 10/24/18 23:23 10/24/18 23:23 - Laboratory Result Diagrams: 10/24/18 22:25 10/24/18 22:25 Laboratory results interpreted by me: 10/24/18 10/24/18 10/24/18 22:25 22:25 22:43 WBC 11.3 H RDW 14.3 H Seg Neuts % (Manual) 93 H Lymphocytes % (Manual) 3 L Abs Neuts (Manual) 10.5 H Abs Lymphs (Manual) 0.3 L Glucose 126 H Total Bilirubin 1.8 H Lipase 338.8 H Urine Protein 30 H Urine Ketones 20 H Discharge - Discharge Clinical Impression: Nausea vomiting and diarrhea, Dehydration Condition: Good Disposition: HOME, SELF-CARE Additional Instructions: Your symptoms are likely due to a viral illness and should resolve in the next several days. You can take [id number] loperamide also known as Imodium as needed for diarrhea per box instructions. Continue to stay hydrated with plenty of solution such as Gatorade or Pedialyte. You are being prescribed Zofran to take as needed for nausea and vomiting. Please return if you develop severe abdominal pain, pass out, become unable to tolerate any oral fluids for 12 more hours, or any other symptoms that are concerning to you.
== END 2018-10-25 00:04 | disposition home or self-care (01) ==
LOC: ER 21:42
DX: R11.2 Nausea with vomiting, unspecified (principal); R19.7 Diarrhea, unspecified; E86.0 Dehydration; R14.0 Abdominal distension (gaseous); I10 Essential (primary) hypertension
CPT/HCPCS: 99284; 96361; 96374; 36415; 83690; 85025; 80053; 81001; J2405; J7030; A9270

== ENCOUNTER 2019-01-22 16:58 | Emergency (ER) | payer MEDICARE ==
[2019-01-22] MEDS ORDERED: ASPIRIN 81 MG TABLET, CHEWABLE PO ONE (18:42)
--- NOTE | 2019-01-22 18:44 | ER Document Report ---
ED Medical Screen (RME) - General Chief Complaint: Chest Pain Stated Complaint: CHEST PAIN Time Seen by Provider: 01/22/19 18:33 Notes: 73-year-old male coming in today with right-sided chest pain that is non-radiating. Symptoms for the past 24-48 hours. No shortness of breath. History of aortic valve replacement surgery 6 months ago. No complications thus far. I have treated and performed a rapid initial assessment of this patient. A comprehensive ED assessment and evaluation of the patient, analysis of test results and completion of medical decision making process will be conducted by additional ED providers. PHYSICAL EXAMINATION: GENERAL: Well-appearing, well-nourished and in no acute distress. A&Ox4. Answers questions appropriately. LUNGS: Breath sounds clear to auscultation bilaterally and equal. No wheezes rales or rhonchi. HEART: Regular rate and rhythm without murmurs, rubs, gallops. ABDOMEN: Soft, nondistended abdomen. No guarding, no rebound. Normal bowel sounds present. No CVA tenderness bilaterally. + mild epigastric tenderness (cannot elicit thorough abd exam w/o table, however). Extremities: No cyanosis, clubbing, or edema b/l. NEUROLOGICAL: Normal speech, normal gait. PSYCH: Normal mood, normal affect. TRAVEL OUTSIDE OF THE [place] IN LAST 30 DAYS: No - Related Data Allergies/Adverse Reactions: Cephalosporins Allergy (Verified 10/24/18 22:48) Facial edema and rash lisinopril Allergy (Verified 10/24/18 22:48) Penicillins Allergy (Verified 10/24/18 22:48) Past Medical History - Past Medical History Cardiac Medical History: Reports: Hx Hypercholesterolemia, Hx Hypertension Renal/ Medical History: Denies: Hx Peritoneal Dialysis Past Surgical History: Reports: Hx Cardiac Surgery - Aortic valve replacement 06/08/18 at [place]., Hx Genitourinary Surgery - hypospadius repair, Hx Rectal Surgery - anal repair - Immunizations Immunizations up to date: Yes Physical Exam - Vital signs Vitals: Temp Pulse Resp BP Pulse Ox 98.0 F 65 16 137/90 H 96 01/22/19 17:25 01/22/19 17:25 01/22/19 17:25 01/22/19 17:25 01/22/19 17:25 Course - Vital Signs Vital signs: Temp Pulse Resp BP Pulse Ox 98.0 F 65 16 137/90 H 96 01/22/19 17:25 01/22/19 17:25 01/22/19 17:25 01/22/19 17:25 01/22/19 17:25
--- NOTE | 2019-01-22 19:19 | RADIOLOGY REPORT (SQ) ---
EXAM DESCRIPTION: CHEST 2 VIEWS COMPLETED DATE/TIME: 01/22/2019 7:09 pm REASON FOR STUDY: RIGHT SIDED CHEST PAIN COMPARISON: Chest x-ray 07/16/2018. EXAM PARAMETERS: NUMBER OF VIEWS: two views TECHNIQUE: Digital Frontal and Lateral radiographic views of the chest acquired. RADIATION DOSE: NA LIMITATIONS: none FINDINGS: LUNGS AND PLEURA: No consolidation, pneumothorax or pleural effusion. MEDIASTINUM AND HILAR STRUCTURES: No masses or contour abnormalities. HEART AND VASCULAR STRUCTURES: Heart normal size. No evidence for failure. BONES: No acute findings. HARDWARE: Sternotomy wires and cardiac valve prosthesis are present. IMPRESSION: NO ACUTE RADIOGRAPHIC FINDING IN THE CHEST. TECHNICAL DOCUMENTATION: JOB ID: [id number] 2010 [employer]- All Rights Reserved Reading location - IP/workstation name: [email or web address]
[2019-01-22 19:51] LABS: ABSOLUTE EOSINOPHILS # (AUTO) 0.1 10^3/uL (0.0-0.6); ABSOLUTE LYMPHOCYTES (AUTO) 1.8 10^3/uL (0.5-4.7); ABSOLUTE MONOCYTES (AUTO) 0.6 10^3/uL (0.1-1.4); ABSOLUTE NEUT (AUTO) 5.3 10^3/uL (1.7-8.2); BASOPHILS % (AUTO) 0.5 % (0-2); EOSINOPHILS % (AUTO) 0.7 % (0-6); HEMATOCRIT 44.4 % (37.9-51.0); HEMOGLOBIN 15.6 g/dL (13.5-17.0); LYMPHOCYTES % (AUTO) 23.2 % (13-45); MEAN CORPUSCULAR HEMOGLOBIN 30.5 pg (27.0-33.4); MEAN CORPUSCULAR HGB CONC 35.1 g/dL (32.0-36.0); MEAN CORPUSCULAR VOLUME 87 fl (80-97); PLATELET COUNT 175 10^3/uL (150-450); RED BLOOD COUNT 5.11 10^6/uL (4.35-5.55); RED CELL DISTRIBUTION WIDTH 13.8 % (11.5-14.0); SEGMENTED NEUTROPHILS % (AUTO) 67.6 % (42-78); TOTAL CELLS COUNTED % (AUTO) 100 %; WHITE BLOOD COUNT 7.8 10^3/uL (4.0-10.5)
[2019-01-22 20:01] LABS: ALANINE AMINOTRANSFERASE 23 U/L (21-72); ALBUMIN 4.8 g/dL (3.5-5.0); ALKALINE PHOSPHATASE 78 U/L (38-126); ANION GAP 11 (5-19); ASPARTATE AMINO TRANSFERASE 29 U/L (17-59); BILIRUBIN,DIRECT 0.1 mg/dL (0.0-0.4); BLOOD UREA NITROGEN 14 mg/dL (7-20); CALCIUM 9.5 mg/dL (8.4-10.2); CARBON DIOXIDE 25 mmol/L (22-30); CHLORIDE 99 mmol/L (98-107); GLUCOSE 101 mg/dL (75-110); POTASSIUM 4.1 mmol/L (3.6-5.0); SODIUM 134.9 mmol/L (137-145); TOTAL PROTEIN 7.6 g/dL (6.3-8.2)
--- NOTE | 2019-01-22 20:48 | ER Document Report ---
ED General - General Chief Complaint: Chest Pain Stated Complaint: CHEST PAIN Time Seen by Provider: 01/22/19 18:33 Notes: Patient is a 73-year-old male with a past medical history of an aortic valve replacement, presents complaining of 8 months of pain over the right chest wall just below the level of the incision for his minimally invasive valve replacement surgery. States that the pain has been there since surgery but that it has become more persistent in the last 48 hours. Describes it as a mild, aching, shooting pain to a dime sized area just inferior to the incisional site. He states that the pain is not intense enough that he has felt like he needed to take anything. He states touching the area worsens the pain. Denies any pain with breathing. No associated shortness of breath, nausea or vomiting. He has discussed this with his manager graphic and was told that it was likely related to postoperative musculoskeletal changes to the area. Nothing is otherwise new or different that prompted a visit to the emergency department today. Denies fever or constitutional symptoms. TRAVEL OUTSIDE OF THE [place] IN LAST 30 DAYS: No - Related Data Allergies/Adverse Reactions: Cephalosporins Allergy (Verified 10/24/18 22:48) Facial edema and rash lisinopril Allergy (Verified 10/24/18 22:48) Penicillins Allergy (Verified 10/24/18 22:48) Past Medical History - General Information source: Patient - Social History Smoking Status: Never Smoker Frequency of alcohol use: None Drug Abuse: None Lives with: Spouse/Significant other Family History: Reviewed & Not Pertinent Patient has suicidal ideation: No Patient has homicidal ideation: No - Past Medical History Cardiac Medical History: Reports: Hx Hypercholesterolemia, Hx Hypertension Renal/ Medical History: Denies: Hx Peritoneal Dialysis Past Surgical History: Reports: Hx Cardiac Surgery - Aortic valve replacement 06/08/18 at [place]., Hx Genitourinary Surgery - hypospadius repair, Hx Rectal Surgery - anal repair - Immunizations Immunizations up to date: Yes Review of Systems - Review of Systems Notes: Constitutional: Negative for fever. HENT: Negative for sore throat. Eyes: Negative for visual changes. Cardiovascular: Negative for chest pain. Respiratory: Negative for shortness of breath. Gastrointestinal: Negative for abdominal pain, vomiting or diarrhea. Genitourinary: Negative for dysuria. Musculoskeletal: Positive for chronic chest wall discomfort Skin: Negative for rash. Neurological: Negative for headaches, weakness or numbness. 10 point ROS negative except as marked above and in HPI. Physical Exam - Vital signs Vitals: Temp Pulse Resp BP Pulse Ox 98.0 F 65 16 137/90 H 96 01/22/19 17:25 01/22/19 17:25 01/22/19 17:25 01/22/19 17:25 01/22/19 17:25 Interpretation: Normal Notes: PHYSICAL EXAMINATION: GENERAL: Well-appearing, well-nourished and in no acute distress. HEAD: Atraumatic, normocephalic. EYES: Pupils equal round and reactive to light, extraocular movements intact, sclera anicteric, conjunctiva are normal. ENT: nares patent, oropharynx clear without exudates. Moist mucous membranes. NECK: Normal range of motion, supple without lymphadenopathy LUNGS: Breath sounds clear to auscultation bilaterally and equal. No wheezes rales or rhonchi. HEART: Regular rate and rhythm without murmurs Chest wall: Mild pain on palpation of the area just below the incisional line on the right chest wall ABDOMEN: Soft, nontender, normoactive bowel sounds. No guarding, no rebound. No masses appreciated. EXTREMITIES: Normal range of motion, no pitting or edema. No cyanosis. NEUROLOGICAL: No focal neurological deficits. Moves all extremities spontaneously and on command. PSYCH: Normal mood, normal affect. SKIN: Warm, Dry, normal turgor, no rashes or lesions noted. Course - Re-evaluation Re-evalutation: 01/22/19 20:47 Presentation of a very well-appearing 73-year-old male with a history of appro ximately 8 months of right-sided chest wall pain just below the incisional line of his minimally invasive valve replacement surgery. This appears to be entirely musculoskeletal in nature. The symptoms have been ongoing for 8 months, have only become more persistent in the last several days but still come and go. Pain is reproducible on palpation of the affected area which is about a dime sized area in the middle inferior portion of the scar. Clinical history is not at all consistent with pulmonary embolus, ACS, pneumothorax or any alternative like for any diagnosis. Workup is reassuring today. At this time will discharge with return precautions and follow-up recommendations. Verbal di scharge instructions given a the bedside and opportunity for questions given. Medication warnings reviewed. Patient is in agreement with this plan and has verbalized understanding of return precautions and the need for primary care follow-up in the next 24-72 hours. - Vital Signs Vital signs: Temp Pulse Resp BP Pulse Ox 97.9 F 65 23 H 138/93 H 95 01/22/19 20:49 01/22/19 17:25 01/22/19 20:49 01/22/19 20:49 01/22/19 20:49 - Laboratory Result Diagrams: 01/22/19 19:30 01/22/19 19:30 Laboratory results interpreted by me: 01/22/19 19:30 Sodium 134.9 L - Diagnostic Test Radiology reviewed: Image reviewed, Reports reviewed Radiology results interpreted by me: 01/22/19 20:47 Chest x-ray: No acute infiltrate or pneumothorax - EKG Interpretation by Me Additional EKG results interpreted by me: 01/22/19 20:47 Sinus rhythm, rate 61. No ST elevations or depressions. QTC is 415. Discharge - Discharge Clinical Impression: Chest wall pain, Postoperative pain Condition: Good Disposition: HOME, SELF-CARE Additional Instructions: The pain in your chest wall is likely secondary to the valve replacement that you had. This seems very musculoskeletal in nature. Your labs and chest x-ray are normal. Please follow-up with your primary care physician regarding today's concerns. Return if you develop worsening pain, shortness of breath, begin coughing blood, have difficulty taking deep breath, or have any other symptoms that are worrisome to you.
[2019-01-22 20:52] VITALS: BP 138/93
--- NOTE | 2019-01-22 22:14 | EKG REPORT ---
SEVERITY:- NORMAL ECG - SINUS RHYTHM : Confirmed by: Elicia Jenkins MD 22-Jan-2019 22:13:36
== END 2019-01-22 20:54 | disposition home or self-care (01) ==
LOC: ER 16:58
DX: G89.18 Other acute postprocedural pain (principal); R07.89 Other chest pain; Z95.2 Presence of prosthetic heart valve; Z88.1 Allergy status to other antibiotic agents; Z88.8 Allergy status to other drugs, medicaments and biological substances; Z88.0 Allergy status to penicillin; I10 Essential (primary) hypertension
CPT/HCPCS: 93005; 99284; 36415; 85025; 80053; 84484; 71046; 93010; A9270

== ENCOUNTER 2019-02-15 16:26 | Emergency (ER) | payer MEDICARE ==
[2019-02-15] MEDS ORDERED: LIDOCAINE 2% VISCOUS SOLN 20 ML UDCUP PO ONE (17:24)
[2019-02-15] MEDS ORDERED: METOCLOPRAMIDE HCL ORAL SOLN 10 MG/10 ML UDCUP PO ONE (17:24)
[2019-02-15] MEDS ORDERED: MAG HYDROX/AL HYDROX/SIMETH SUSP 30 ML UDCUP PO ONE (17:24)
--- NOTE | 2019-02-15 17:24 | EKG REPORT ---
SEVERITY:- ABNORMAL ECG - SINUS RHYTHM MULTIPLE VENTRICULAR PREMATURE COMPLEXES PROBABLE LEFT ATRIAL ABNORMALITY : Confirmed by: Frankie Pérez MD 15-Feb-2019 17:23:55
--- NOTE | 2019-02-15 17:27 | ER Document Report ---
ED Medical Screen (RME) - General Chief Complaint: Upper Abdominal Pain Stated Complaint: CHEST PAIN Time Seen by Provider: 02/15/19 17:12 TRAVEL OUTSIDE OF THE [place]. IN LAST 30 DAYS: No - HPI Notes: 02/15/19 17:26 Patient is a 73-year-old male with a history of hypertension, aortic valve replacement 7 months ago, gallstones who presents emergency department complaining of epigastric abdominal pain/lower chest pain that is described as a burning sensation that does not radiate over the last couple days. Patient states that he has had issues with this for a couple months intermittently. Food intake does not improve or worsen his symptoms. He is eating and drinking without difficulty. He is urinating normally and having normal bowel movements. Denies any headache, fever, URI, sore throat, palpitations, syncope, cough, shortness of breath, wheeze, dyspnea, nausea/vomiting/diarrhea, urinary retention, dysuria, hematuria, back pain, or rash. I have treated and performed a rapid initial assessment of this patient. A comprehensive ED assessment and evaluation of the patient, analysis of test results and completion of medical decision making process will be conducted by additional ED providers. PHYSICAL EXAMINATION: GENERAL: Well-appearing, well-nourished and in no acute distress. A&Ox4. Answers questions appropriately. LUNGS: Breath sounds clear to auscultation bilaterally and equal. No wheezes rales or rhonchi. HEART: Regular rate and rhythm without murmurs, rubs, gallops. ABDOMEN: Soft, nondistended abdomen. No guarding, no rebound. Normal bowel sounds present. No CVA tenderness bilaterally. + mild epigastric tenderness (cannot elicit thorough abd exam w/o table, however). Extremities: No cyanosis, clubbing, or edema b/l. No lower extremity asymmetry. NEUROLOGICAL: Normal speech, normal gait. PSYCH: Normal mood, normal affect. - Related Data Allergies/Adverse Reactions: Cephalosporins Allergy (Verified 02/15/19 16:28) Facial edema and rash lisinopril Allergy (Verified 02/15/19 16:28) Penicillins Allergy (Verified 02/15/19 16:28) Past Medical History - Social History Frequency of alcohol use: None Drug Abuse: None - Past Medical History Cardiac Medical History: Reports: Hx Hypercholesterolemia, Hx Hypertension Renal/ Medical History: Denies: Hx Peritoneal Dialysis Past Surgical History: Reports: Hx Cardiac Surgery - Aortic valve replacement 06/08/18 at [place]., Hx Genitourinary Surgery - hypospadius repair, Hx Rectal Surgery - anal repair - Immunizations Immunizations up to date: Yes Physical Exam - Vital signs Vitals: Temp Pulse Resp BP Pulse Ox 98.0 F 77 17 125/87 H 97 02/15/19 16:44 02/15/19 16:44 02/15/19 16:44 02/15/19 16:44 02/15/19 16:44 Course - Vital Signs Vital signs: Temp Pulse Resp BP Pulse Ox 98.0 F 77 17 125/87 H 97 02/15/19 16:44 02/15/19 16:44 02/15/19 16:44 02/15/19 16:44 02/15/19 16:44
--- NOTE | 2019-02-15 17:50 | RADIOLOGY REPORT (SQ) ---
EXAM DESCRIPTION: CHEST SINGLE VIEW COMPLETED DATE/TIME: 02/15/2019 5:41 pm REASON FOR STUDY: epigastric, cp COMPARISON: None. EXAM PARAMETERS: NUMBER OF VIEWS: One view. TECHNIQUE: Single frontal radiographic view of the chest acquired. RADIATION DOSE: NA LIMITATIONS: None. FINDINGS: LUNGS AND PLEURA: Stable in appearance. No consolidation or effusions. MEDIASTINUM AND HILAR STRUCTURES: No masses. Contour normal. HEART AND VASCULAR STRUCTURES: Heart normal in size. Normal vasculature. BONES: No acute findings. HARDWARE: Unchanged. OTHER: No other significant finding. IMPRESSION: Stable chest. No acute findings. TECHNICAL DOCUMENTATION: JOB ID: [id number] [employer]- All Rights Reserved Reading location - IP/workstation name: [email or web address]
[2019-02-15 18:28] LABS: ABSOLUTE BASOPHILS # (AUTO) 0.1 10^3/uL (0.0-0.2); ABSOLUTE LYMPHOCYTES (AUTO) 1.9 10^3/uL (0.5-4.7); ABSOLUTE MONOCYTES (AUTO) 0.6 10^3/uL (0.1-1.4); ABSOLUTE NEUT (AUTO) 4.7 10^3/uL (1.7-8.2); BASOPHILS % (AUTO) 0.7 % (0-2); EOSINOPHILS % (AUTO) 0.6 % (0-6); HEMOGLOBIN 15.4 g/dL (13.5-17.0); LYMPHOCYTES % (AUTO) 26.2 % (13-45); MEAN CORPUSCULAR HEMOGLOBIN 31.3 pg (27.0-33.4); MEAN CORPUSCULAR HGB CONC 35.8 g/dL (32.0-36.0); MEAN CORPUSCULAR VOLUME 87 fl (80-97); MONOCYTES % (AUTO) 8.5 % (3-13); PLATELET COUNT 202 10^3/uL (150-450); RED BLOOD COUNT 4.92 10^6/uL (4.35-5.55); RED CELL DISTRIBUTION WIDTH 13.2 % (11.5-14.0); TOTAL CELLS COUNTED % (AUTO) 100 %; WHITE BLOOD COUNT 7.4 10^3/uL (4.0-10.5)
[2019-02-15 18:47] LABS: ALANINE AMINOTRANSFERASE 29 U/L (21-72); ALBUMIN 4.6 g/dL (3.5-5.0); ALKALINE PHOSPHATASE 77 U/L (38-126); ANION GAP 6 (5-19); ASPARTATE AMINO TRANSFERASE 28 U/L (17-59); BILIRUBIN,DIRECT 0.3 mg/dL (0.0-0.4); BLOOD UREA NITROGEN 14 mg/dL (7-20); CALCIUM 9.8 mg/dL (8.4-10.2); CARBON DIOXIDE 29 mmol/L (22-30); CHLORIDE 105 mmol/L (98-107); GLUCOSE 102 mg/dL (75-110); LIPASE 272.1 U/L (23-300); POTASSIUM 4.5 mmol/L (3.6-5.0); SODIUM 139.9 mmol/L (137-145); TOTAL PROTEIN 7.7 g/dL (6.3-8.2)
--- NOTE | 2019-02-15 19:19 | ER Document Report ---
ED General - General Chief Complaint: Upper Abdominal Pain Stated Complaint: CHEST PAIN Time Seen by Provider: 02/15/19 17:12 Mode of Arrival: Ambulatory Information source: Patient Notes: This is a 73-year-old man with a history of gallstones, GERD, aortic valve replacement (6 months ago at [place], clean coronaries at that time), left eye blindness (congenital malformation) who presents to the emergency room with a 2 cm x 2 cm area of burning sensation in the left sternum. There is no asso ciation with exertion or activity. He states it comes and goes. Denies any shortness of breath. Denies any abdominal pain. Denies any nausea or vomiting. Patient describes the burning is in a small finite area in the chest wall. There is no dullness or squeezing or tightness in his chest. He has not had no shortness of breath. He said no radiation. He is denied any abdominal pain. He denies any fever, chills or recent illnesses. He denies any increased fatigue over the last 3 days. TRAVEL OUTSIDE OF THE [place] IN LAST 30 DAYS: No - HPI Onset: Yesterday Onset/Duration: Gradual Quality of pain: No pain Severity: None Pain Level: Denies Associated symptoms: denies: Chills, Productive cough, Fever, Nausea, Vomiting, Shortness of breath Exacerbated by: Denies Relieved by: Denies Similar symptoms previously: Yes Recently seen / treated by doctor: No - Related Data Allergies/Adverse Reactions: Cephalosporins Allergy (Verified 02/15/19 16:28) Facial edema and rash lisinopril Allergy (Verified 02/15/19 16:28) Penicillins Allergy (Verified 02/15/19 16:28) Past Medical History - General Information source: Patient - Social History Smoking Status: Never Smoker Cigarette use (# per day): No Frequency of alcohol use: None Drug Abuse: None Lives with: Family Family History: Reviewed & Not Pertinent Patient has suicidal ideation: No Patient has homicidal ideation: No - Past Medical History Cardiac Medical History: Reports: Hx Hypercholesterolemia, Hx Hypertension Pulmonary Medical History: Reports: None EENT Medical History: Reports: Other - History of blindness left eye, 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 Endocrine Medical History: Reports: None Renal/ Medical History: Denies: Hx Peritoneal Dialysis Malignancy Medical History: Reports None GI Medical History: Reports: None Musculoskeletal Medical History: Reports None Skin Medical History: Reports None Psychiatric Medical History: Reports: None Past Surgical History: Reports: Hx Cardiac Surgery - Aortic valve replacement 06/08/18 at [place]., Hx Genitourinary Surgery - hypospadius repair, Hx Rectal Surg jailyn - anal repair - Immunizations Immunizations up to date: Yes Review of Systems - Review of Systems Constitutional: denies: Chills, Fever EENT: No symptoms reported Cardiovascular: denies: Chest pain, Palpitations, Heart racing Respiratory: No symptoms reported Gastrointestinal: See HPI. denies: Abdomen distended, Abdominal pain Genitourinary: No symptoms reported Male Genitourinary: No symptoms reported Musculoskeletal: No symptoms reported Skin: No symptoms reported Hematologic/Lymphatic: No symptoms reported Neurological/Psychological: No symptoms reported Physical Exam - Vital signs Vitals: Temp Pulse Resp BP Pulse Ox 98.0 F 77 17 125/87 H 97 02/15/19 16:44 02/15/19 16:44 02/15/19 16:44 02/15/19 16:44 02/15/19 16:44 Notes: Physical exam: GENERAL: Patient is alert and oriented x3, no acute distress HEAD: Atraumatic, normocephalic. EYES: Pupils equal round and reactive to light, extraocular movements intact, sclera anicteric, conjunctiva are normal. ENT: TMs normal, nares patent, oropharynx clear without exudates. Moist mucous membranes. NECK: Normal range of motion, supple without obvious mass or JVD. LUNGS: Breath sounds clear to auscultation bilaterally and equal. No wheezes rales or rhonchi. HEART: Regular rate and rhythm without murmurs, rubs or gallops. ABDOMEN: Soft, normoactive bowel sounds. No tenderness to palpation. No guarding, no rebound. No masses appreciated. EXTREMITIES: Normal range of motion, no pitting or edema. No clubbing or cyanosis. NEUROLOGICAL: Cranial nerves II through XII grossly intact. Normal speech, moving all extremities. PSYCH: Normal mood, normal affect. SKIN: Warm, Dry, normal turgor, no rashes or lesions noted. Course - Re-evaluation Re-evalutation: 02/15/19 21:57 Note: Patient has been very comfortable, his discomfort is most consistent with GI in origin. His troponins have remained negative. His abdomen is soft and nontender. - Vital Signs Vital signs: Temp Pulse Resp BP Pulse Ox 98.0 F 77 10 L 129/88 H 99 02/15/19 16:44 02/15/19 16:44 02/15/19 21:01 02/15/19 21:01 02/15/19 21:01 - Laboratory Result Diagrams: 02/15/19 18:14 02/15/19 18:14 Laboratory results interpreted by me: 02/15/19 18:14 Creatinine 1.34 H Est GFR (Non-Af Amer) 52 L - Diagnostic Test Radiology reviewed: Image reviewed, Reports reviewed - Chest x-ray shows no infiltrates - EKG Interpretation by Me Rhythm: NSR - EKG shows normal sinus rhythm with a ventricular rate of 76, no acute ST-T wave changes, there are a few PVCs. Discharge - Discharge Clinical Impression: GERD Condition: Stable Disposition: HOME, SELF-CARE Additional Instructions: As we discussed your heart tests look good today. On exam, your abdomen was nontender and there was no evidence of an acute gallbladder attack (the gallbladder is on the right upper part of your abdomen). All your other labs look good today. I would follow-up with your primary care doctor: Bring a copy of today's labs with you when you go. Continue taking the omeprazole. Return to the emergency room for any chest pain, shortness of breath or any concerns or getting worse.
[2019-02-15 21:31] VITALS: BP 129/88
== END 2019-02-15 22:12 | disposition home or self-care (01) ==
LOC: ER 16:26
DX: K21.9 Gastro-esophageal reflux disease without esophagitis (principal); R10.10 Upper abdominal pain, unspecified; R07.9 Chest pain, unspecified; H54.62 Unqualified visual loss, left eye, normal vision right eye; I10 Essential (primary) hypertension
CPT/HCPCS: 93005; 99284; 36415; 83690; 85025; 80053; 84484; 71045; 93010; J3490; A9270

== ENCOUNTER 2020-08-31 00:09 | Emergency (ER) | payer MEDICARE ==
--- NOTE | 2020-08-31 01:04 | ER Document Report ---
ED Medical Screen (RME) - General Chief Complaint: Weakness Stated Complaint: POSS TIA SYMPTOMS Time Seen by Provider: 08/31/20 00:52 Mode of Arrival: Ambulatory Information source: Patient Notes: Patient is a 74-year-old male coming in today chief complaint of possible stroke. He was talking to his sister around 11:00 this evening. He felt like his tongue was "stiff" and felt like he was possibly slurring his words. He has no TIA or stroke history. He does not take blood thinners. He does not have any extremity deficits or weakness. He has a chronic left-sided facial asymmetry General no acute distress Cardiac regular rate and rhythm Pulmonary clear to auscultation without distress Abdomen nontender Neuro CN 2 through 12 grossly intact. Left-sided facial droop (chronic) I have greeted and performed a rapid initial assessment of this patient. A comprehensive ED assessment and evaluation of the patient, analysis of test results and completion of the medical decision making process will be conducted by additional ED providers. TRAVEL OUTSIDE OF THE [place] IN LAST 30 DAYS: No - Related Data Allergies/Adverse Reactions: Cephalosporins Allergy (Verified 08/31/20 00:49) Facial edema and rash lisinopril Allergy (Verified 08/31/20 00:49) Penicillins Allergy (Verified 08/31/20 00:49) Past Medical History - Past Medical History Cardiac Medical History: Reports: Hx Hypercholesterolemia, Hx Hypertension Renal/ Medical History: Denies: Hx Peritoneal Dialysis Past Surgical History: Reports: Hx Cardiac Surgery - Aortic valve replacement 06/08/18 at [place]., Hx Genitourinary Surgery - hypospadius repair, Hx Rectal Surgery - anal repair - Immunizations Immunizations up to date: Yes Physical Exam - Vital signs Vitals: Pulse Resp BP Pulse Ox 88 16 141/97 H 99 08/31/20 00:54 08/31/20 00:54 08/31/20 00:54 08/31/20 00:54 Course - Vital Signs Vital signs: Temp Pulse Resp BP Pulse Ox 88 16 141/97 H 99 08/31/20 00:54 08/31/20 00:54 08/31/20 00:54 08/31/20 00:54
[2020-08-31 01:45] LABS: ABSOLUTE BASOPHILS # (AUTO) 0.1 10^3/uL (0.0-0.2); ABSOLUTE EOSINOPHILS # (AUTO) 0.1 10^3/uL (0.0-0.6); ABSOLUTE LYMPHOCYTES (AUTO) 2.1 10^3/uL (0.5-4.7); ABSOLUTE MONOCYTES (AUTO) 0.8 10^3/uL (0.1-1.4); ABSOLUTE NEUT (AUTO) 4.9 10^3/uL (1.7-8.2); BASOPHILS % (AUTO) 0.8 % (0-2); EOSINOPHILS % (AUTO) 1.3 % (0-6); HEMATOCRIT 42.2 % (37.9-51.0); HEMOGLOBIN 14.8 g/dL (13.5-17.0); LYMPHOCYTES % (AUTO) 26.2 % (13-45); MEAN CORPUSCULAR HGB CONC 35.2 g/dL (32.0-36.0); MEAN CORPUSCULAR VOLUME 88 fl (80-97); MONOCYTES % (AUTO) 9.5 % (3-13); PLATELET COUNT 162 10^3/uL (150-450); RED BLOOD COUNT 4.79 10^6/uL (4.35-5.55); RED CELL DISTRIBUTION WIDTH 13.2 % (11.5-14.0); SEGMENTED NEUTROPHILS % (AUTO) 62.2 % (42-78); TOTAL CELLS COUNTED % (AUTO) 100 %; WHITE BLOOD COUNT 7.9 10^3/uL (4.0-10.5)
[2020-08-31 01:50] LABS: INTERNATIONAL RATION (INR) 1.01; PARTIAL THROMBOPLASTIN TIME 35.8 SEC (23.5-35.8); PROTHROMBIN TIME 13.5 SEC (11.4-15.4)
--- NOTE | 2020-08-31 01:55 | RADIOLOGY REPORT (SQ) ---
EXAM DESCRIPTION: XR CHEST 1 VIEW COMPLETED DATE/TME: 08/31/2020 00:52 CLINICAL HISTORY: 74 years, Male, slurred speech COMPARISON: February 15, 2019 NUMBER OF VIEWS: 1 TECHNIQUE: Portable AP upright view the chest was obtained at 1:34 AM. LIMITATIONS: None. FINDINGS: Heart size is within normal limits. Lungs appear clear of active disease. Chronic deformity of the right bony thorax is again noted. 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 There is an apparent thoracic levoscoliosis as before. IMPRESSION: No acute abnormality as above. copyright 2010 [employer]- All Rights Reserved
[2020-08-31 01:57] LABS: ALBUMIN 4.4 g/dL (3.5-5.0); ALKALINE PHOSPHATASE 74 U/L (38-126); ANION GAP 10 (5-19); ASPARTATE AMINO TRANSFERASE 29 U/L (17-59); BILIRUBIN,DIRECT 0.3 mg/dL (0.0-0.4); BILIRUBIN,TOTAL 1.1 mg/dL (0.2-1.3); BLOOD UREA NITROGEN 13 mg/dL (7-20); CALCIUM 9.1 mg/dL (8.4-10.2); CARBON DIOXIDE 27 mmol/L (22-30); CHLORIDE 102 mmol/L (98-107); CREATINE KINASE 74 U/L (55-170); GLUCOSE 102 mg/dL (75-110); POTASSIUM 3.9 mmol/L (3.6-5.0); TOTAL PROTEIN 7.1 g/dL (6.3-8.2)
[2020-08-31 02:09] LABS: CREATINE KINASE MB 1.35 ng/mL (<4.55)
--- NOTE | 2020-08-31 02:10 | RADIOLOGY REPORT (SQ) ---
EXAM DESCRIPTION: CT HEAD WITHOUT IV CONTRAST COMPLETED DATE/TME: 08/31/2020 00:52 CLINICAL HISTORY: 74 years, Male, slurred speech COMPARISON: None. TECHNIQUE: Noncontrast imaging of the brain was performed. Images stored on PACS. All CT scanners at this facility use dose modulation, iterative reconstruction, and/or weight based dosing when appropriate to reduce radiation dose to as low as reasonably achievable (ALARA). [facility]: Dose Right [facility]: CareDose [facility]: Dose Right [facility]: Teradose 4D [facility]: [employer] LIMITATIONS: None. FINDINGS: Cortical atrophy and presumed chronic small vessel ischemic changes within the white matter are noted. There is ventricular enlargement, out of proportion to the degree of atrophy with normal pressure hydrocephalus not excluded. Corpus callosum is not well visualized, which could be due to thinning or dysgenesis. There is no evidence of acute intracranial hemorrhage, abnormal mass effect, or major vascular territorial infarct. The calvarium is intact. There is a 9 mm mucous retention cyst within left sphenoid sinus. IMPRESSION: Mild cortical atrophy and presumed chronic small vessel ischemic changes within the white matter. Ventricular enlargement is noted, out of proportion to the degree of atrophy with normal pressure hydrocephalus not excluded. 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 Additional evaluation with MRI with additional CSF flow studies would be helpful if no contraindication. TECHNICAL DOCUMENTATION: Quality ID # 436: Final reports with documentation of one or more dose reduction techniques (e.g., Automated exposure control, adjustment of the mA and/or kV according to patient size, use of iterative reconstruction technique) copyright 2011 [employer]- All Rights Reserved
[2020-08-31 02:15] LABS: TROPONIN I < 0.012 ng/mL
--- NOTE | 2020-08-31 03:00 | ER Document Report ---
ED General - General Chief Complaint: S/S of Possible Stroke Stated Complaint: POSS TIA SYMPTOMS Time Seen by Provider: 08/31/20 00:52 Mode of Arrival: Ambulatory TRAVEL OUTSIDE OF THE [place] IN LAST 30 DAYS: No - HPI Notes: Patient is a 74-year-old male who presents to the emergency department for evaluation. He was on the phone with his sister. It was approximately 2300 but he felt like his tongue was "stiff" he could be possibly slurring his words. He went talk to his . She states she did not think he was slurring his words. She did not find any deficits on her cursory exam of him at this time. They called neurology, with whom he actually has an MRI scheduled on Thursday for balance issues, and they recommended he come to the ED for further evaluation. The patient states he does not feel he slurring his words at any point now. He denies any recent medication changes. He is currently not taking any aspirin. He has had balance issues for several months. He is gone through physical therapy and he has not really seen any improvement. He had his first ap pointment with neurology, the MRI is scheduled for Thursday as discussed. 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, blindness in the left eye, deafness in the left ear - Past Medical History Cardiac Medical History: Reports: Hx Hypercholesterolemia, Hx Hypertension Renal/ Medical History: Denies: Hx Peritoneal Dialysis Past Surgical History: Reports: Hx Cardiac Surgery - Aortic valve replacement 06/08/18 at [place]., Hx Genitourinary Surgery - hypospadius repair, Hx Rectal Surgery - anal repair - Immunizations Immunizations up to date: Yes Review of Systems - Review of Systems Constitutional: No symptoms reported EENT: No symptoms reported Cardiovascular: No symptoms reported Respiratory: No symptoms reported Gastrointestinal: No symptoms reported Genitourinary: No symptoms reported Musculoskeletal: No symptoms reported Skin: No symptoms reported Neurological/Psychological: See HPI Physical Exam - Vital signs Vitals: Pulse Resp BP Pulse Ox 88 16 141/97 H 99 08/31/20 00:54 08/31/20 00:54 08/31/20 00:54 08/31/20 00:54 - Notes Notes: Vital signs reviewed, please refer to chart. Head is normocephalic, atraumatic. Right pupil round, reactive to light. Neck is supple without meningismus. Heart is regular rate and rhythm. Lungs are clear to auscultation bilaterally. Abdomen is soft, nontender, normoactive bowel sounds throughout. Extremities without cyanosis, clubbing. Posterior calves are nontender. Peripheral pulses are equal. Skin is warm and dry. Patient is awake, alert, oriented x3. Cranial nerves II - XII are grossly intact without focal neurological deficits, again with the exception of blindness in the left eye, deafness in the left ear, and facial asymmetry at rest on the left side of the face. There are no actual motion deficits noted on cranial nerve testing, however.. Strength is plus 5 out of 5 bilateral upper and lower extremities. Sensation is intact. Reflexes symmetrical. Intact [id number], rapid alternating movements, [id number]. Course - Re-evaluation Re-evalutation: 08/31/20 04:33 Patient presents to the emergency department for evaluation. He reported that he felt his tongue was "stiff", but he did not have any slurred speech that his could recognize. He has no slurred speech per my evaluation. His only deficits are his chronic ones. Repeat neurological exam is unremarkable. Laboratory investigations failed to show any significant abnormality. CT scan showed findings consistent with hydrocephalus. He has not had any studies performed for this in the past. I was able to speak with Dr. Ike Guerra, neurologist on-call at [place]. The patient is currently seeing Dr. Sandhu for evaluation. He was able to evaluate the images, listened to this patient's history and exam based on my findings. He states that the NPH findings are advancing slightly but not new, they were present on a study performed back in 2018. He agrees, given the patient's presentation and lack of neurological findings, that outpatient follow-up with Dr. Sandhu is appropriate, the patient should still have his MRI scheduled on Thursday. Patient was very amenable to this plan. He is currently stable. He is told that if any of his symptoms change, certainly if he develops return of his slurred speech, difficulty s peaking or swallowing, or any other new or concerning symptoms, he needs to return to the ED. - Vital Signs Vital signs: Temp Pulse Resp BP Pulse Ox 98.4 F 82 16 150/95 H 100 08/31/20 04:04 08/31/20 01:04 08/31/20 04:00 08/31/20 01:38 08/31/20 04:00 - Laboratory Result Diagrams: 08/31/20 01:28 08/31/20 01:28 - Diagnostic Test Radiology reviewed: Image reviewed, Reports reviewed Radiology results interpreted by me: 08/31/20 04:34 Chest X-Ray 08/31/20 00:52 IMPRESSION: No acute abnormality as above. copyright 2010 [employer]- All Rights Reserved Head CT 08/31/20 00:52 IMPRESSION: Mild cortical atrophy and presumed chronic small vessel ischemic changes within the white matter. Ventricular enlargement is noted, out of proportion to the degree of atrophy with normal pressure hydrocephalus not excluded. 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 Additional evaluation with MRI with additional CSF flow studies would be helpful if no contraindication. TECHNICAL DOCUMENTATION: Quality ID # 436: Final reports with documentation of one or more dose reduction techniques (e.g., Automated exposure control, adjustment of the mA and/or kV according to patient size, use of iterative reconstruction technique) copyright 2010 [employer]- All Rights Reserved - EKG Interpretation by Me Additional EKG results interpreted by me: 08/31/20 04:35 Centimeters with a rate of 81 bpm. PVC noted. Normal axis and intervals. No acute ST changes concerning for ischemia or infarction. Discharge - Discharge Clinical Impression: Normal pressure hydrocephalus, Reported slurred speech Condition: Stable Disposition: HOME, SELF-CARE Additional Instructions: Your evaluation here did not show any acute abnormalities. This was discussed with on-call neurology at [facility]. Please have your MRI as scheduled on Thursday. If your speaking difficulty returns, if you develop difficulty swallowing, seeing, moving an arm or leg, or any other new or concerning symptoms, please return immediately to the emergency department for reevaluation.
[2020-08-31 04:51] VITALS: BP 161/104
--- NOTE | 2020-08-31 17:59 | EKG REPORT ---
SEVERITY:- OTHERWISE NORMAL ECG - SINUS RHYTHM VENTRICULAR PREMATURE COMPLEX : Confirmed by: Ansley Vasquez 31-Aug-2020 17:58:52
== END 2020-08-31 04:51 | disposition home or self-care (01) ==
LOC: ER 00:09
DX: G91.2 (Idiopathic) normal pressure hydrocephalus (principal); R26.89 Other abnormalities of gait and mobility; Z88.0 Allergy status to penicillin; Z88.8 Allergy status to other drugs, medicaments and biological substances; Z87.891 Personal history of nicotine dependence; I10 Essential (primary) hypertension
CPT/HCPCS: 36415; 70450; 71045; 80053; 82550; 82553; 84484; 85025; 85610; 85730; 93005; 93010; 99285

== ENCOUNTER 2020-11-09 11:02 | Emergency (ER) | payer MEDICARE ==
--- NOTE | 2020-11-09 12:55 | RADIOLOGY REPORT (SQ) ---
EXAM DESCRIPTION: KUB/ABDOMEN (SINGLE VIEW) IMAGES COMPLETED DATE/TIME: 11/09/2020 12:39 pm REASON FOR STUDY: constipation COMPARISON: None. NUMBER OF VIEWS: One view. TECHNIQUE: Supine radiographic image of the abdomen acquired. LIMITATIONS: None. FINDINGS: BOWEL GAS PATTERN: Nonobstructive gas pattern. There is considerable retained stool. CALCIFICATIONS: No suspicious calcifications. SOFT TISSUES: No gross mass or suggestion of organomegaly. HARDWARE: Ventriculoperitoneal shunt. BONES: No acute fracture. No worrisome bone lesions. OTHER: No other significant finding. IMPRESSION: Constipation. Cannot exclude fecal impaction. TECHNICAL DOCUMENTATION: JOB ID: [id number] 2010 [employer]- All Rights Reserved Reading location - IP/workstation name: [email or web address]
[2020-11-09] MEDS ORDERED: MINERAL OIL 30 ML UDCUP PR ONE (13:11)
--- NOTE | 2020-11-09 13:19 | ER Document Report ---
ED General - General Chief Complaint: Rectal Pain Stated Complaint: RECTAL PAIN Time Seen by Provider: 11/09/20 12:24 Primary Care Provider: ALEXANDER SANTO MD [Primary Care Provider] - Follow up as needed TRAVEL OUTSIDE OF THE [place] 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 This gentleman periodically has had problems with fecal impaction and routinely takes MiraLAX occasionally having to come to the hospital to get manual disimpaction and enema. 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 Since he has been home from the hospital he had difficulty having a bowel movement has not had a bowel movement within the last 3 days. No fever chills. No vomiting. No dysuria. - Related Data Allergies/Adverse Reactions: Cephalosporins Allergy (Verified 11/09/20 12:10) Facial edema and rash lisinopril Allergy (Verified 11/09/20 12:10) metoprolol Allergy (Verified 11/09/20 12:10) Rash Penicillins Allergy (Verified 11/09/20 12:10) Past Medical History - General Information source: Patient, Relative - Social History Smoking Status: Never Smoker Chew tobacco use (# tins/day): No Frequency of alcohol use: None Drug Abuse: None Family History: Reviewed & Not Pertinent Patient has homicidal ideation: No - Past Medical History Cardiac Medical History: Reports: Hx Hypercholesterolemia, Hx Hypertension Renal/ Medical History: Denies: Hx Peritoneal Dialysis GI Medical History: Reports: Other - As per history of present illness Past Surgical History: Reports: Hx Cardiac Surgery - Aortic valve replacement 06/08/18 at [place]., Hx Genitourinary Surgery - hypospadius repair, Hx Rectal Surgery - anal repair, Hx HOT WATER HEATER INSTALLER Shunt - Immunizations Immunizations up to date: Yes Review of Systems - Review of Systems Notes: Constitutional: Negative for fever. HENT: Negative for sore throat. Eyes: Negative for visual changes. Cardiovascular: Negative for chest pain. Respiratory: Negative for shortness of breath. Gastrointestinal: As per HPI. Genitourinary: Negative for dysuria. Musculoskeletal: Negative for back pain. Skin: Negative for rash. Neurological: Negative for headaches, weakness or numbness. 10 point ROS negative except as marked above and in HPI. Physical Exam - Vital signs Vitals: Temp Pulse Resp BP Pulse Ox 98.2 F 106 H 20 167/88 H 96 11/09/20 11:06 11/09/20 11:06 11/09/20 11:06 11/09/20 11:06 11/09/20 11:06 - Notes Notes: GENERAL: Elderly man awake and alert appearing in moderate discomfort. SKIN: Good turgor no rashes. HEAD: Patient has sutures of the scalp with palpable shunt tubing extending into the neck posterior laterally. Surgical wounds are clean without redness or drainage. EYES: PERRLA. EOMI. Conjunctivae and sclerae clear. EARS: CANALS AND TMS CLEAR. NOSE: CLEAR. MOUTH: Moist mucosa. Good dentition. No stridor or edema. No drooling. NECK: Shunt tubing is palpable in the neck posterior laterally. Supple. No masses or thyromegaly. No adenopathy. Carotids 2+ without bruits. No JVD. BACK: Symmetrical without tenderness. CHEST: Respirations unlabored. Breath sounds clear and symmetrical. HEART: Regular rhythm. No murmur gallop or rub. ABDOMEN: Several small laparoscopy incisions over the abdomen with some mild surrounding ecchymoses. There is no redness or drainage. Abdomen appears mildly distended. Soft nontender without masses, organomegaly or rebound. Bowel sounds normally active. No bruits. GENITALIA: Firm stool present in the anus. EXTREMITIES: No edema. No calf tenderness. Cap refill less than 1.5 seconds. Dorsalis pedis and posterior tibial pulses 3+ and symmetrical. NEUROLOGICAL: GCS 15. Alert and oriented x3. Normal gait. Fluent speech. Cranial nerves II through XII intact. Sensorimotor and cerebellar normal. Normal tone. PSYCHIATRIC: Appropriate affect. Course - Re-evaluation Re-evalutation: 11/09/20 15:28 Enema and manual disimpaction with good results. - Vital Signs Vital signs: Temp Pulse Resp BP Pulse Ox 98.2 F 106 H 20 167/88 H 96 11/09/20 11:06 11/09/20 11:06 11/09/20 11:06 11/09/20 11:06 11/09/20 11:06 - Laboratory Results Critical Laboratory Results Reviewed: No Critical Results - Radiology Results Radiology Results Interpreted: 11/09/20 13:19 KUB X-Ray 11/09/20 12:25 IMPRESSION: Constipation. Cannot exclude fecal impaction. Critical Radiology Results Reviewed: Yes Attending or Supervising Physician who Reviewed Radiology: CHIRAG REAVES Discharge - Discharge Clinical Impression: Fecal impaction Condition: Stable Disposition: HOME, SELF-CARE Instructions: Fecal Impaction ([facility]) Additional Instructions: Increase oral fluids. Resume use of MiraLAX. Continue your other usual medications. Follow-up with your primary care physician and/or your surgical doctors next 3 to 5 days. Return here as needed for new or worsening symptoms: Pain that is worsening or unimproved Uncontrolled vomiting High fever or shaking chills Overall worsening Referrals: ALEXANDER SANTO MD [Primary Care Provider] - Follow up as needed
[2020-11-09] MEDS ORDERED: POLYETHYLENE GLYCOL 3350 POWDER 17 GM/1 PACKET PO ONE (15:37)
[2020-11-09 16:40] VITALS: BP 135/85
== END 2020-11-09 17:00 | disposition home or self-care (01) ==
LOC: ER 11:02
DX: K56.41 Fecal impaction (principal); I10 Essential (primary) hypertension; G91.2 (Idiopathic) normal pressure hydrocephalus; Z98.2 Presence of cerebrospinal fluid drainage device; Z87.738 Personal history of other specified (corrected) congenital malformations of digestive system; Z79.899 Other long term (current) drug therapy; Z88.1 Allergy status to other antibiotic agents; Z88.8 Allergy status to other drugs, medicaments and biological substances; Z88.0 Allergy status to penicillin
CPT/HCPCS: 99283; 74018; A9270 ×2; J3490